=== PATIENT | male | born 1955 | race Caucasian/White ===

== ENCOUNTER 2023-03-05 15:06 | Emergency (ER) | payer MEDICARE, OTHER ==
[~2023-03-05] VITALS: Ht 167 cm; Wt 82.0 kg
--- NOTE | 2023-03-05 15:17 | ED General ---
General Stated Complaint: LOSS OF BALANCE; COUGH History of Present Illness Date Seen by Provider: Mar 05, 2023 Time Seen by Provider: 15:16 Initial Comments 67 yr M with PMH of CAD with stents years ago/ HTN, is here with c/o disorientation, inability to drive, confusion, since a couple hours ago after he was at a car show. He is accompanied by his . Pt is able to answer most questions and follow all commands. Pt and report that patient has similar episodes such as this at least once a week. Patient also complains of cough. Denies fever and chills, sore throat, abdominal pain, chest pain, palpitations, dizziness, blurry vision, speech disturbances, nausea and vomiting, diarrhea, dysuria, hematuria. No known sick contacts. Allergies and Home Medications Patient Home Medication List Home Medication List Reviewed: Yes Review of Systems Review of Systems Constitutional: no symptoms reported EENTM: no symptoms reported Respiratory: cough Cardiovascular: no symptoms reported Gastrointestinal: no symptoms reported Genitourinary: no symptoms reported Musculoskeletal: no symptoms reported Psychiatric/Neurological: See HPI, Other (Altered mental status) Hematologic/Lymphatic: No Symptoms Reported Immunological/Allergic: no symptoms reported Physical Exam Vital Signs Capillary Refill : Height, Weight, BMI Height: '" Weight: lbs. oz. kg; BMI Method: General Appearance: No Apparent Distress, WD/WN HEENT: PERRL/EOMI, Normal ENT Inspection Neck: Full Range of Motion, Normal Inspection, Supple Respiratory: Chest Non Tender, Lungs Clear, Normal Breath Sounds Cardiovascular: Regular Rate, Rhythm, No Edema, No Murmur Gastrointestinal: No Organomegaly, Non Tender, Soft Back: Normal Inspection Extremity: Normal Inspection, Normal Range of Motion Neurologic/Psychiatric: Alert, No Motor/Sensory Deficits, Normal Mood/Affect, inking machine tender II-XII Norm as Tested, Other (AO x2, patient is unable to state the year) Reflexes: 4+ Bicep (R), 4+ Bicep (L), 4+ Tricep (R), 4+ Tricep (L), 4+ Knee (R), 4+ Knee (L), 4+ Ankle (R), 4+ Ankle (L) Skin: Normal Color Lymphatic: No Adenopathy Progress/Results/Core Measures Suspected Sepsis SIRS Temperature: Pulse: Respiratory Rate: Blood Pressure / Mean: Results/Orders My Orders Orders - SADIA MEHTA MD Chest 1 View Ap/Pa Only (03/05/23 15:17) Ct Head Wo-R/O Stroke (03/05/23 15:27) Continuous Ekg Monitoring (03/05/23:) Ekg Tracing (03/05/23:) Cbc With Automated Diff (03/05/23:) Comprehensive Metabolic Panel (03/05/23:) Drug Screen Stat (Urine) (03/05/23:) Magnesium (03/05/23:) Ua Culture If Indicated (03/05/23:) Influenza A And B By Pcr (03/05/23:) Troponin I Fs (03/05/23:) Covid 19 Inhouse Test (03/05/23:) Vital Signs/I&O Capillary Refill : Progress Note : Progress Note 1. AMS NEEDING STROKE RULE OUT: - CT HEAD: refused - EKG: refused - Labs and urine ordered but pt has refused all labs, CT, CXR. Risks and benefits have been explained to pt, which include possible , but pt still refuses. - Differential diagnoses include: stroke/ TIA/ UTI/ dementia/ COVID. - PATIENT HAS REFUSED CARE AND LEFT AGAINST MEDICAL ADVICE 2. COUGH: - CXR:refused - COVID test/ Rapid flu test: - Differential for cough include: COVID/ Flu/ URI/ Pneumonia - Pt has left AMA Departure Impression Primary Impression: Altered mental state Qualified Codes: R41.0 - Disorientation, unspecified Additional Impressions: Cough Qualified Codes: R05.9 - Cough, unspecified Left against medical advice Disposition: 07 AGAINST MEDICAL ADVICE Condition: Against Medical Advice Departure-Patient Inst. Referrals: FLACA ROSARIO APRN (PCP) Primary Care Physician [facility] (Family) Primary Care Physician SADIA MEHTA MD Mar 05, 2023 15:17
[2023-03-05 15:39] VITALS: BP 139/85
== END 2023-03-05 15:42 | disposition left against medical advice (07) ==
LOC: EDUNIT# 15:06 → ER FS 15:09
DX: R41.82 Altered mental status, unspecified (principal); R05.9 Cough, unspecified
CPT/HCPCS: 87636; 99283